=== PATIENT | female | born 1995 | race Caucasian/White ===

== ENCOUNTER 2019-09-26 07:02 | Inpatient (IN) | payer BC ==
[~2019-09-26] VITALS: Ht 160 cm; Wt 80.5 kg
[2019-09-26 18:39] VITALS: BP 125/76; PULSE 88; TEMP 99
[2019-09-26 19:00] VITALS: BP 125/76; PULSE 88; TEMP 99.1
[2019-09-26 19:40] LABS: BASO % 0.2 % (0.0-2.0); EOS # 0.1 (0.0-0.7); EOS % 0.7 % (0-4.0); GRAN # 7.4 (1.4-6.5); GRAN % 73.7 % (42.2-75.2); HEMOGLOBIN 11.9 g/dl (12.5-16.0); LYMPH # 1.8 (1.2-3.4); LYMPH % 18.1 % (20.0-51.0); MEAN CELL VOLUME 95 fl (80.0-100.0); MEAN CORPUSCULAR HEMOGLOBIN 32 pg (27.0-31.0); MEAN CORPUSCULAR HGB CONC 33 g/dl (33.0-37.0); MEAN PLATELET VOLUME 11.5 fl (7.4-10.4); MONO # 0.7 (0.1-0.6); MONO % 7.1 % (1.7-9.3); PLATELET COUNT 189 K/mm3 (130-400); RED BLOOD COUNT 3.75 M/mm3 (4.10-5.30); REDCELL DISTRIBUTION WIDTH-CV 13.3 % (11.5-14.5)
[2019-09-26 19:43] LABS: HEMATOCRIT 35.7 % (37.0-47.0)
[2019-09-26 20:00] VITALS: BP 112/62; PULSE 90
[2019-09-26] MEDS ORDERED: BONJESTA ER 201 EACH PO (20:03)
[2019-09-26] MEDS ORDERED: PROTONIX20 MG PO (20:03)
[2019-09-26] MEDS ORDERED: PRENATAL 191 TAB PO (20:03)
[2019-09-26 22:30] VITALS: BP 135/82; PULSE 76; TEMP 98.1
[2019-09-27] VITALS (30 sets, daily range): BP systolic 87–150; BP diastolic 43–86; PULSE 71–116; TEMP 98–98.9
--- NOTE | 2019-09-27 04:00 | NUR ---
0400- COMPLETE DIALATION. PATIENT URGE TO PUSH. 0415- PATINENT IN LITHOTOMY, INSTRUCTED ON PUSHING. INITIAL PUSH. 0423- PROLONGED DECEL AT THIS TIME. PUSHING DELAYED. PATIENT PLACED IN HANDS AND KNEES. O2 10L, FLUID BOLUS. 0430- DR. VELARDE CALLED AND EN ROUTE TO HOSPITAL. 0453- DR. VELARDE AT BEDSIDE. SCALP ELECTRODE PLACED. 0500- DR. VELARDE PUSHING AT THIS TIME WITH PATIENT. 0513- SPONTANEOUS DELIVERY OF VIABLE FEMALE VIA VACCUM WITH [address] VELARDE. 0523- SPONTANEOUS DELIVERY OF PLACENTA, PITOCIN INFUSING 333CC/HR.
--- NOTE | 2019-09-27 07:24 | NUR ---
Patient denies dizziness and states the motrin has helped with cramping. Fundus massaged, firm, down 1 from umbilicus, small amount of free flow noted with fundal massage. Patient repositioned in bed and sitting up eating light breakfast.
--- NOTE | 2019-09-27 10:00 | NUR ---
Patient able to move left leg but unable to hold off bed for 5 seconds. With assist times 2 patient pivots into wheelchair and taken to bathroom where assisted and pivots onto toilet. Patient able to void but unmeasured. Pericare taught and provided. Ice pack and tucks pads used. New gown on. Patient assisted and pivots back into wheelchair and taken to room 207 where oriented to room and call light. Assisted into bed and resting comfortably. VS taken and WNL. Patient educated to call out using call light when she feels the urge to void to have assistance ambulating to toilet.
[2019-09-28 01:00] VITALS: BP 97/51; PULSE 87
[2019-09-28 08:00] VITALS: BP 106/62; PULSE 98; TEMP 98.2
--- NOTE | 2019-09-28 09:51 | NUR ---
Initial visit; Parents thanked [employer] for offering congratulations and God's blessings for the of their daughter. [employer] thanked parents for choosing [facility].
[2019-09-28 15:10] VITALS: BP 98/53; PULSE 90; TEMP 97.9
[2019-09-28 20:00] VITALS: BP 102/61; PULSE 84; TEMP 98.2
--- NOTE | 2019-09-29 05:45 | NUR ---
Patient is requesting a breast pump to "supplement" her feedings with a bottle nipple because shes afraid there is a latch issue. has been cluster-feeding all night. Explained SNS to patient and , but they are not interested and are adament about starting to use a breastpump. Pump and supplies taken in room and set up for patient.
[2019-09-29] MEDS ORDERED: IBU800 M1 PO (08:11)
== END 2019-09-29 11:00 | disposition home or self-care (01) | DRG 807 ==
LOC: LDR 07:02 → OB 09-27 10:00
PROVIDERS: ADMIT Student in an Organized Health Care Education/Training Program
PROC: 10D07Z6 Extraction of Products of Conception, Vacuum, Via Natural or Artificial Opening (ICD-10-PCS; principal; 2019-09-27)
PROC: 0W8NXZZ Division of Female Perineum, External Approach (ICD-10-PCS; 2019-09-27)
PROC: 0U7C7ZZ Dilation of Cervix, Via Natural or Artificial Opening (ICD-10-PCS; 2019-09-27)
DX: O76 Abnormality in fetal heart rate and rhythm complicating labor and delivery (principal); Z37.0 Single live birth; O99.284 Endocrine, nutritional and metabolic diseases complicating childbirth; E28.2 Polycystic ovarian syndrome; Z3A.40 40 weeks gestation of pregnancy; E55.9 Vitamin D deficiency, unspecified
CPT/HCPCS: J2405; J2590; J7120

== ENCOUNTER → 2020-09-18 | Outpatient (CLI) | payer BC ==
[~2020-09-18] MED LIST: BONJESTA ER 201 EACH PO; IBU800 M1 PO; PRENATAL 191 TAB PO; PROTONIX20 MG PO
== END ==
LOC: COL.RAD 12:40
DX: R10.31 Right lower quadrant pain (principal)

== ENCOUNTER → 2020-11-13 | Outpatient (CLI) | payer BC | LOC: MC.RAD 14:00 | DX: N63.25 Unspecified lump in the left breast, overlapping quadrants (principal) ==

== ENCOUNTER 2021-11-25 08:20 | Inpatient (IN) | payer BC ==
[~2021-11-25] VITALS: Ht 160 cm; Wt 79.5 kg
[2021-12-02] VITALS (26 sets, daily range): BP systolic 87–126; BP diastolic 48–81; PULSE 73–113; TEMP 97.5–98.3
[2021-12-02] MEDS ORDERED: BONJESTA ER 201 EACH PO (07:27)
[2021-12-02] MEDS ORDERED: PROTONIX20 MG PO (07:28)
[2021-12-02] MEDS ORDERED: PRENATAL TABLET PO (07:28)
--- NOTE | 2021-12-02 07:30 | NUR ---
Patient ambulatory with spouse to LDR2 for induction of labor. Patient changed into gown and wedged to left side in bed. EFMs explained and applied. She reports good movement, she denies leaking of fluid or vaginal bleeding. VSS. Assessment completed, consents signed. Plan of care reviewed. Patient oriented to room and call light.
[2021-12-02 07:57] LABS: BASO % 0.2 % (0.0-2.0); EOS # 0.1 K/mm3 (0.0-0.7); EOS % 0.6 % (0.0-4.0); GRAN # 8.9 K/mm3 (1.4-6.5); GRAN % 75.4 % (42.2-75.2); HEMOGLOBIN 11.4 g/dl (12.5-16.0); LYMPH # 1.7 K/mm3 (1.2-3.4); LYMPH % 14.8 % (20.0-51.0); MEAN CELL VOLUME 89 fl (80.0-100.0); MEAN CORPUSCULAR HEMOGLOBIN 30 pg (27-31); MEAN CORPUSCULAR HGB CONC 33 g/dl (33.0-37.0); MEAN PLATELET VOLUME 10.2 fl (7.4-10.4); MONO % 8.7 % (1.7-9.3); PLATELET COUNT 210 K/mm3 (130-400); RED BLOOD COUNT 3.85 M/mm3 (4.10-5.30)
[2021-12-02 07:58] LABS: HEMATOCRIT 34.4 % (37.0-47.0)
--- NOTE | 2021-12-02 08:00 | NUR ---
Pitocin started at 2mu per orders and protocol.
--- NOTE | 2021-12-02 08:45 | NUR ---
Dr. Rojo on unit, FHR tracing reviewed; to patient room at 0840, discusses plan of care; 0843 SVE with AROM by Dr. Rojo - / with clear fluid noted.
--- NOTE | 2021-12-02 09:10 | NUR ---
Patient up to the birthing ball, breathing through contractions.
--- NOTE | 2021-12-02 10:02 | NUR ---
0976 JOVANNY Isaacs to room to place epidural. Patient sits upright on the side of the bed for procedure. FHR difficult to monitor in this position and EFM intemittently traces maternal HR as is coorelates with spO2 tracing. 1002 Test dose by JOVANNY Isaacs, see anesthesia record for details.
--- NOTE | 2021-12-02 10:47 | NUR ---
1015 Patient continues to breath through contractions and has gotten little relief from the epidural. She reports feeling the urge to push. SVE 5/100/-1. 1025 Patient reports that the urge to push is stronger, SVE 10/+1. Dr. Rojo called for delivery. 1029 Patient uncomfortable with contractions and reports that she is getting no relief and wants to push. Pitocin off while we wait for Dr. Rojo. 1036 Dr. Rojo to room and patient prepped for delivery. 1039 Patient begins to push with contractions. FHR difficult to monitor while pushing, between pushing FHR 80-90 bpm. 1047 Spontaneous vaginal delivery of viable female by Dr. Rojo. Cord clamed and cut and infant to the care of the nursery RN. 1053 Spontaneous delivery of placenta by Dr. Rojo. Pitocin infusing at 333ml/hr per orders and protocol. Fundus firm with massage.
--- NOTE | 2021-12-02 18:15 | NUR ---
Patient c/o feeling short of breath with activity. Breathing is unlabored. Patient back to bed and VS obtained, spO2 100%.
--- NOTE | 2021-12-02 18:42 | NUR ---
Report received. Plan of care reviewed. Patient and ordering food.
--- NOTE | 2021-12-02 23:21 | NUR ---
BLOOD PRESSURE NOTED TO BE 87/48 IN SUPINE POSITION ON RIGHT ARM. PATIENT REPORTS MILD LIGHTHEADEDNESS. PATIENT INSTRUCTED TO HAVE ASSISTANCE IN ROOM WHEN AMBULATING IF SHE FEELS DIZZY OR LIGHTHEADED. PATIENT REPORTS NO INCREASE IN VAGINAL BLEEDING. WILL CONTINUE TO MONITOR BLOOD PRESSURE.
[2021-12-03 00:16] VITALS: BP 99/56; PULSE 78
[2021-12-03 03:10] VITALS: BP 81/51; PULSE 70; TEMP 97.7
[2021-12-03 05:25] VITALS: BP 111/56
[2021-12-03 09:15] VITALS: BP 112/68; PULSE 88; TEMP 98.2
[2021-12-03] MEDS ORDERED: IBU800 M1 PO (09:36)
== END 2021-12-03 13:00 | disposition home or self-care (01) | DRG 807 ==
LOC: LDR 11-26 08:19 → OB 12-02 15:32
PROVIDERS: ADMIT Student in an Organized Health Care Education/Training Program
PROC: 10E0XZZ Delivery of Products of Conception, External Approach (ICD-10-PCS; principal; 2021-12-02)
PROC: 0KQM0ZZ Repair Perineum Muscle, Open Approach (ICD-10-PCS; 2021-12-02)
PROC: 0W8NXZZ Division of Female Perineum, External Approach (ICD-10-PCS; 2021-12-02)
PROC: 10907ZC Drainage of Amniotic Fluid, Therapeutic from Products of Conception, Via Natural or Artificial Opening (ICD-10-PCS; 2021-12-02)
PROC: 3E033VJ Introduction of Other Hormone into Peripheral Vein, Percutaneous Approach (ICD-10-PCS; 2021-12-02)
DX: O48.0 Post-term pregnancy (principal); Z37.0 Single live birth; O99.284 Endocrine, nutritional and metabolic diseases complicating childbirth; E28.2 Polycystic ovarian syndrome; E55.9 Vitamin D deficiency, unspecified; O66.0 Obstructed labor due to shoulder dystocia; O70.1 Second degree perineal laceration during delivery; Z3A.40 40 weeks gestation of pregnancy
CPT/HCPCS: J2590; J7120